=== PATIENT | male | born 1980 | race Caucasian/White ===

== ENCOUNTER 2024-03-31 06:33 | Day surgery (SDC) | payer OTHER ==
[~2024-03-31] VITALS: Ht 175.3 cm; Wt 69.1 kg
[2024-03-31] MEDS ORDERED: LIDOCAINE 4% 50 ML SOLUTION TP ONE (06:34)
[2024-03-31] MEDS ORDERED: BENZOCAINE 20% 50 MCG/SPRAY 57 GM TP ONE (06:34)
[2024-03-31] MEDS ORDERED: ALBUTEROL SULFATE 2.5 MG/0.5 ML NEB SOLUTION NEB ONE (06:34)
[2024-03-31] MEDS ORDERED: LIDOCAINE 2% 11 ML JELLY TP ONE (06:34)
[2024-03-31] MEDS ORDERED: SODIUM CHLORIDE 0.9% 1,000 ML ONE (07:06)
[2024-03-31] MEDS: SODIUM CHLORIDE 0.9% 1,000 ML IV ONE (07:57)
[2024-03-31] MEDS ORDERED: MIDAZOLAM HCL 2 MG/2 ML VIAL ONE (08:34)
[2024-03-31] MEDS ORDERED: FentaNYL CITRATE PF 100 MCG/2 ML VIAL ONE (08:34)
[2024-03-31 09:45] VITALS: PULSE 86; RESP 17; O2SAT 100
[2024-03-31] MEDS ORDERED: MethylPREDNISolone SOD SUCC 125 MG/2 ML VIAL ONE (10:11)
[2024-03-31] MEDS: MethylPREDNISolone SOD SUCC 125 MG/2 ML VIAL IVP ONE (10:36)
[2024-03-31] MEDS ORDERED: FLUT16SP NASAL (11:26)
[2024-03-31] MEDS ORDERED: SIMV-259 PO (11:26)
[2024-03-31] MEDS ORDERED: BENZ-227 PO (11:26)
[2024-03-31] MEDS ORDERED: MONT-35 PO (11:26)
[2024-03-31] MEDS ORDERED: FAMO20 PO (11:26)
== END 2024-03-31 11:45 | disposition home or self-care (01) ==
LOC: SURGERY 06:33
PROVIDERS: ATTEND Internal Medicine Critical Care Medicine
DX: R05.3 Chronic cough (principal); R06.2 Wheezing; R91.8 Other nonspecific abnormal finding of lung field; J38.4 Edema of larynx; B37.0 Candidal stomatitis; E78.00 Pure hypercholesterolemia, unspecified; J84.10 Pulmonary fibrosis, unspecified; J98.8 Other specified respiratory disorders; J98.09 Other diseases of bronchus, not elsewhere classified; Z85.21 Personal history of malignant neoplasm of larynx; Z79.899 Other long term (current) drug therapy; Z98.890 Other specified postprocedural states
CPT/HCPCS: 31623; 87206; 87101; 87220; 87070; 88108; 31624; 94640; 71045; 87015; J3010; J2250; J2919; Q9967; J7030; J7613; Z7610